=== PATIENT | female | born 1980 | race African-American/Black ===

== ENCOUNTER 2016-04-07 17:36 | Emergency (ER) | payer MEDICAID, OTHER ==
[~2016-04-07] VITALS: Ht 160 cm; Wt 99.8 kg
[~2016-04-07 17:36] MED LIST: AMITRIPTYLINE H10 MG ORAL; KEPPRA1000 MG ORAL; KEPPRA500 MG ORAL; NITROFURANTOIN100 M2 ORAL
[2016-04-07 17:49] VITALS: BP 107/73
[2016-04-07] MEDS ORDERED: TOPIRAMATE25 MG ORAL ×2 (17:51→18:10)
[2016-04-07] MEDS ORDERED: AMITRIPTYLINE25 MG ORAL (17:51)
[2016-04-07] MEDS ORDERED: DuoNeb 0.5-3(2.5)mg/3ml neb HHN ONE (18:00)
[2016-04-07] MEDS ORDERED: KEPPRA1000 MG ORAL (18:10)
[2016-04-07] MEDS ORDERED: AMITRIPTYLINE H10 MG ORAL (18:30)
[2016-04-07 18:52] VITALS: BP 114/72
--- NOTE | 2016-04-07 19:01 | Emergency Room Report ---
History of Present Illness General Chief Complaint: Medication Refill Source: Patient Present Illness HPI Patient is a 35-year-old female presented after increased left-sided chest tightness as well as cough. The patient is a smoker. She denies any fever. She reports being out of her medications for seizures. She denies any leg pain or swelling. Patient had a nonproductive cough intermittently. She denied any exertional symptoms. Patient denied any numbness or weakness to her extremities. She denies drug use. She had not been losing any weight she denies being Allergies: Coded Allergies: No Known Allergies (Unverified , 04/08/14) Patient History Past Medical History: see triage record, seizures Last Menstrual Period: 03/19/2016 Now: No : 9 Para: 6 Reviewed Nursing Documentation: PMH: Agreed, PSxH: Agreed Nursing Documentation-PMH Hx Neurological Problems: Yes - Chiari malformation, cyst behind eye Hx Seizures: Yes Review of Systems All Other Systems: negative except mentioned in HPI Physical Exam Vital Signs Date Time Temp Pulse Resp B/P Pulse Ox O2 Delivery O2 Flow Rate FiO2 04/07/16 17:41 98.4 81 16 107/73 100 Room Air General Appearance: well appearing, no apparent distress, alert, GCS 15 Head: normocephalic, atraumatic ENT: hearing grossly normal, normal voice Neck: full range of motion, supple Respiratory: chest non-tender, no respiratory distress, speaking full sentences , wheezing Gastrointestinal: normal inspection, normal bowel sounds, non tender, soft Musculoskeletal: normal inspection, back normal, digits/nails normal, no calf tenderness Neurologic: normal inspection, alert, oriented x3, responsive, state game protector III-XII nml as tested, normal gait Psychiatric: mood/affect normal Skin: no rash Medical Decision Making Diagnostic Impression: Primary Impression: Bronchitis ER Course Patient presented for chest pain. Differential diagnosis included but was not limited to bronchitis, pneumonia, pulmonary embolism, pericarditis, asthma, among others. EKG interpreted by me showed normal sinus rhythm with a rate of [address] or T wave changes. The patient was given refills of her Elavil as well as seizure medications. Which are Keppra 1000 mg bid and Topamax 50 mg bid. The patient is advised to follow up with primary care doctor in 1-2 days. Patient is advised to return if any worsening condition or if any changes in status that are concerning. Chest X-Ray Diagnostic Results EP Interpretation: Yes Findings: no consolidation, no effusion, no pneumothorax, no acute cardiopulmonary disease Number of Views: 1 Last Vital Signs Date Time Temp Pulse Resp B/P Pulse Ox O2 Delivery O2 Flow Rate FiO2 04/07/16 18:41 83 16 96 Nasal Cannula 04/07/16 17:41 98.4 107/73 Status: improved Disposition: HOME, SELF-CARE Condition: Stable Scripts Amitriptyline Hcl* (AMITRIPTYLINE HCL*) 10 Mg Tablet 30 MG ORAL BEDTIME, #120 TAB Prov: Flavio Mcknight 04/07/16 Topiramate* (TOPAMAX*) 25 Mg Tablet 50 MG ORAL TWICE A DAY, #60 TAB 0 Refills Prov: Flavio Mcknight 04/07/16 Levetiracetam (KEPPRA) 1,000 Mg Tablet 1000 MG ORAL BID, #60 TAB 0 Refills Prov: Flavio Mcknight 04/07/16 Patient Instructions: Medicine Refill at the Emergency Department, Acute Bronchitis Flavio Mcknight Apr 07, 2016 19:01
[2016-04-07 19:06] VITALS: BP 107/73
--- NOTE | 2016-04-08 10:20 | Diagnostic Imaging Report ---
Indication: SOB Technique: One view of the chest Comparison: none Findings: Lungs and pleural spaces are clear. Heart size is normal Impression: No acute process
--- NOTE | 2016-04-08 12:16 | Cardiology Report ---
APPROVED REPORT EKG Measurement Heart [id number] Normal sinus rhythm Normal ECG
== END 2016-04-07 19:06 | disposition home or self-care (01) ==
LOC: EMR 18:05
DX: J40 Bronchitis, not specified as acute or chronic (principal); Z86.69 Personal history of other diseases of the nervous system and sense organs
CPT/HCPCS: 71010; 93005; 94640; 94664; 99284; J7620

== ENCOUNTER 2016-05-04 08:54 | Emergency (ER) | payer MEDICAID, OTHER ==
[~2016-05-04] VITALS: Ht 160 cm; Wt 99.8 kg
[~2016-05-04 08:54] MED LIST changes: +AMITRIPTYLINE25 MG ORAL; +TOPIRAMATE25 MG ORAL
--- NOTE | 2016-05-04 09:14 | Emergency Room Report ---
History of Present Illness General Chief Complaint: Toothache Source: Patient, Medical Record Present Illness HPI Patient presents with complaints of ongoing left dental pain She reports that she has had an abscess for the past 7-10 days the pain has become worse Patient reports that there was some mixup with her [employer] and has not been able to see primary physician or dentist patient is also out of her baseline medications Pain is 8/10 localized to the left lower dental region radiates up towards left upper maxillary Denies any fevers or chills Allergies: Coded Allergies: No Known Allergies (Unverified , 04/08/14) Patient History Past Medical History: see triage record Pertinent Family History: none Last Menstrual Period: 04/03/2016 Now: No : 9 Para: 6 Reviewed Nursing Documentation: PMH: Agreed, PSxH: Agreed Nursing Documentation-PMH Hx Neurological Problems: Yes - Chiari malformation, cyst behind eye Hx Seizures: Yes Review of Systems All Other Systems: negative except mentioned in HPI Physical Exam Vital Signs Date Time Temp Pulse Resp B/P Pulse Ox O2 Delivery O2 Flow Rate FiO2 05/04/16 08:56 99.0 84 16 154/100 99 Room Air Sp02 EP Interpretation: reviewed, normal General Appearance: mild distress - Appears in pain Head: normocephalic, atraumatic Eyes: bilateral eye EOMI, bilateral eye PERRL ENT: other - Left back molar dental region, appears to have a ingrown type appearance some inflammatory changes in the gingival area, I cannot visualize any obvious abscess formation, no trismus, Neck: full range of motion, supple Respiratory: lungs clear Musculoskeletal: normal inspection Neurologic: alert, oriented x3, responsive Skin: normal color, no rash - No obvious facial abscess evident Lymphatic: no adenopathy Medical Decision Making Diagnostic Impression: Primary Impression: Dental abscess ER Course Given the examined findings there is no obvious clinical evidence of abscess however the patient does show evidence of increased discomfort And tooth decay with likely early abscess Patient was provided with antibiotics and pain medication And requires close outpatient followup Last Vital Signs Date Time Temp Pulse Resp B/P Pulse Ox O2 Delivery O2 Flow Rate FiO2 05/04/16 08:56 99.0 84 16 154/100 99 Room Air Status: improved Disposition: HOME, SELF-CARE Condition: Improved Scripts Levetiracetam (KEPPRA) 750 Mg Tablet 750 MG ORAL BID, #30 TAB Prov: KADEN JACKSON D.O. 05/04/16 Amoxicillin* (AMOXIL*) 500 Mg Capsule 500 MG ORAL THREE TIMES A DAY, #30 CAP Prov: KADEN JACKSON D.O. 05/04/16 Acetaminophen With Codeine (T#3) (TYLENOL #3 TAB*) Y Tab 1 TAB ORAL Q8H Y for For Pain, #12 TAB Prov: KADEN JACKSON D.O. 05/04/16 Ibuprofen* (MOTRIN*) 600 Mg Tablet 600 MG ORAL Q8H Y for For Pain, #30 TAB 0 Refills Prov: KADEN JACKSON D.O. 05/04/16 Topiramate* (TOPAMAX*) 25 Mg Tablet 25 MG ORAL TWICE A DAY, #60 TAB 0 Refills Prov: KADEN JACKSON D.O. 05/04/16 Amitriptyline HCl (ELAVIL*) 25 Mg Tablet 25 MG ORAL BEDTIME, #30 TAB Prov: KADEN JACKSON D.O. 05/04/16 Additional Instructions: Patient is provided with the discharge instructions notified to follow up with primary doctor in the next 2-3 days otherwise return to the er with any worsening symptoms. Please note that this report is being documented using [employer] technology. This can lead to erroneous entry secondary to incorrect interpretation by the dictating instrument. KADEN JACKSON D.O. May 04, 2016 09:14
[2016-05-04] MEDS ORDERED: Tylenol #3 tab (300mg/30mg) ORAL ONE (09:15)
[2016-05-04] MEDS ORDERED: Ketorolac 60mg Inj IM ONE (09:15)
[2016-05-04] MEDS ORDERED: IBUPROFEN600 MG ORAL (09:16)
[2016-05-04] MEDS ORDERED: TOPIRAMATE25 MG ORAL (09:16)
[2016-05-04] MEDS ORDERED: AMITRIPTYLINE25 MG ORAL (09:16)
[2016-05-04] MEDS ORDERED: ACETAMINOPHEN-1 EAC1 ORAL (09:16)
[2016-05-04] MEDS ORDERED: AMOXICILLIN500 MG ORAL (09:16)
[2016-05-04] MEDS ORDERED: KEPPRA750 MG ORAL (09:18)
[2016-05-04 09:36] VITALS: BP 153/100
== END 2016-05-04 09:40 | disposition home or self-care (01) ==
LOC: EMR 09:23
DX: K04.7 Periapical abscess without sinus (principal)
CPT/HCPCS: 96372; 99284

== ENCOUNTER 2017-03-30 10:02 | Emergency (ER) | payer MEDICAID, OTHER ==
[~2017-03-30] VITALS: Ht 162.6 cm; Wt 81.6 kg
[~2017-03-30 10:02] MED LIST changes: +ACETAMINOPHEN-1 EAC1 ORAL; +AMOXICILLIN500 MG ORAL; +IBUPROFEN600 MG ORAL; +KEPPRA750 MG ORAL
[2017-03-30 10:13] VITALS: BP 108/75
--- NOTE | 2017-03-30 10:38 | Emergency Room Report ---
History of Present Illness General Chief Complaint: Pain Source: Patient, Medical Record Present Illness HPI 36-year-old female presents ED complaining of left wrist pain x3 days. Pain as throbbing, 8/10, radiating up the arm. Worse with bending and twisting. Patient denies any trauma to the wrist. States it feels swollen compared to right wrist. Denies any other injuries. No other aggravating or relieving factors. Denies any other associated symptoms Allergies: Coded Allergies: No Known Allergies (Unverified , 04/08/14) Patient History Past Medical History: seizures Past Surgical History: none Pertinent Family History: none Social History: Denies: smoking, alcohol use, drug use Last Menstrual Period: 03/21/17 Now: No Immunizations: UTD Reviewed Nursing Documentation: PMH: Agreed, PSxH: Agreed Nursing Documentation-PMH Past Medical History: No History, Except For Hx Neurological Problems: Yes - Chiari malformation, cyst behind eye Hx Seizures: Yes Review of Systems All Other Systems: negative except mentioned in HPI Physical Exam Vital Signs Date Time Temp Pulse Resp B/P (MAP) Pulse Ox O2 Delivery O2 Flow Rate FiO2 03/30/17 10:05 97.9 89 18 103/73 98 Room Air Sp02 EP Interpretation: reviewed, normal General Appearance: no apparent distress, alert, GCS 15, non-toxic Head: normocephalic Eyes: bilateral eye normal inspection, bilateral eye PERRL ENT: normal ENT inspection Neck: normal inspection Respiratory: normal inspection Cardiovascular #1: normal inspection Gastrointestinal: normal inspection Rectal: deferred Genitourinary: no CVA tenderness Musculoskeletal: tender - L wrist Neurologic: alert, oriented x3, responsive, motor strength/tone normal, sensory intact, speech normal Psychiatric: normal inspection Skin: normal inspection Lymphatic: normal inspection Procedures Splinting Splinting : Consent: Verbal Pre-Made Type: velcro Splint: wrist Pre-Proc Neuro Vasc Exam: normal Post-Proc Neuro Vasc Exam: normal Patient Tolerated: Well Complications: None Medical Decision Making Diagnostic Impression: Primary Impression: Wrist pain Qualified Codes: M25.532 - Pain in left wrist ER Course Hospital Course 36-year-old female presents ED complaining of left wrist pain/swelling Differential diagnoses include: Fracture, dislocation, sprain, contusion Clinical course Patient placed on stretcher. After initial history and physical, I ordered pain medications and Xrays of L wrist Xrays read shows no acute fracture/dislocation. degenerative changes noted in lunate/triequetral joint. placed in wrist splint Diagnosis - wrist pain Stable and discharged to home with prescription for Motrin. apply ice, keep elevated. weight bear as tolerated. Followup with PMD. Return to ED if symptoms recur or worsen Other X-Ray Diagnostic Results Other X-Ray Diagnostic Results : X-Ray ordered: L wrist # of Views/Limited Vs Complete: 3 View Indication: Pain EP Interpretation: Yes Interpretation: no dislocation, no soft tissue swelling, no fractures Impression: No acute disease Electronically Signed by: Electronically signed by Wong Carvalho MD Last Vital Signs Date Time Temp Pulse Resp B/P (MAP) Pulse Ox O2 Delivery O2 Flow Rate FiO2 03/30/17 10:13 97.9 84 16 108/75 99 Room Air Status: improved Disposition: HOME, SELF-CARE Condition: Stable Scripts Ibuprofen* (MOTRIN*) 600 Mg Tablet 600 MG ORAL Q8H Y for For Pain, #30 TAB 0 Refills Prov: WONG CARVALHO M.D. 03/30/17 Referrals: EMPLOYEE COLIN AUGUSTE (PCP) WONG CARVALHO M.D. Mar 30, 2017 10:37
--- NOTE | 2017-03-30 11:00 | Diagnostic Imaging Report ---
Indication: Reason For Exam: PAIN Technique: XRAY Wrist Complete L Comparison: None. Findings: There is narrowing of the lunate triquetral joint. Cystic changes are noted on both sides of the joint in both the lunate and triquetrum. Remainder the bones are intact. Alignment is normal. 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
[2017-03-30] MEDS ORDERED: IBUPROFEN600 MG ORAL (11:08)
[2017-03-30 11:19] VITALS: BP 104/65
== END 2017-03-30 11:16 | disposition home or self-care (01) ==
LOC: EMR 10:16
DX: M25.532 Pain in left wrist (principal); M85.68 Other cyst of bone, other site
CPT/HCPCS: 99283

== ENCOUNTER 2017-12-31 18:35 | Emergency (ER) | payer MEDICAID, OTHER ==
[~2017-12-31] VITALS: Ht 160 cm; Wt 104.3 kg
[2017-12-31 18:48] VITALS: BP 106/77
[2017-12-31 19:32] LABS: APPEARANCE,URINE CLEAR; BILIRUBIN, URINE NEGATIVE (NEGATIVE); COLOR,URINE PALE YELLOW; GLUCOSE, URINE (UA) NEGATIVE (NEGATIVE); KETONES,URINE 1+ (NEGATIVE); LEUKOCYTE ESTERASE ,URINE NEGATIVE (NEGATIVE); NITRITE,URINE NEGATIVE (NEGATIVE); PH,URINE 5 (4.5-8.0); PROTEIN,URINE NEGATIVE (NEGATIVE); UROBILINOGEN,URINE NORMAL MG/DL (0.0-1.0)
--- NOTE | 2017-12-31 19:45 | Emergency Room Report ---
History of Present Illness General Chief Complaint: Abdominal Pain Source: Patient, Medical Record Present Illness HPI This patient c/o sharp RLQ pain after bm/urine. About 15-20 minutes and now subsided. She has had history of same on/off for about 2-3 years. PMD is trying to get vaginal pelvic US. No vag bleed or d/c. +dysparenuria. LMP two weeks ago. No dysuria, no diarrhea, no fever. Allergies: Coded Allergies: No Known Allergies (Unverified , 04/08/14) Patient History Last Menstrual Period: 12/18/17 Nursing Documentation-[facility] Past Medical History: No History, Except For Hx Neurological Problems: Yes - Chiari malformation, cyst behind eye Hx Seizures: Yes Review of Systems Constitutional: Reports: no symptoms Eye: Reports: no symptoms ENT: Reports: no symptoms Respiratory: Reports: no symptoms Cardiovascular: Reports: no symptoms Gastrointestinal: Reports: no symptoms Genitourinary: Reports: see HPI Musculoskeletal: Reports: no symptoms Skin: Reports: no symptoms Psychiatric: Reports: no symptoms Neurological: Reports: no symptoms Endocrine: Reports: no symptoms Hematologic/Lymphatic: Reports: no symptoms Allergic: Reports: no symptoms All Other Systems: negative except mentioned in HPI Physical Exam Vital Signs Date Time Temp Pulse Resp B/P (MAP) Pulse Ox O2 Delivery O2 Flow Rate FiO2 12/31/17 18:40 98.2 91 18 106/77 98 Room Air Sp02 EP Interpretation: reviewed, normal General Appearance: normal inspection, well appearing, no apparent distress, alert, GCS 15, non-toxic, obese Head: normocephalic, atraumatic Eyes: bilateral eye normal inspection, bilateral eye PERRL, bilateral eye EOMI ENT: normal ENT inspection, hearing grossly normal, normal pharynx, no angioedema, normal voice, moist mucus membranes Neck: normal inspection, full range of motion, supple, no meningismus, no bony tend Respiratory: normal inspection, lungs clear, normal breath sounds, no rhonchi, no respiratory distress, no retraction, no accessory muscle use, no wheezing Cardiovascular #1: normal inspection, regular rate, rhythm, no edema Gastrointestinal: normal inspection, normal bowel sounds, soft, no mass, non- distended, other - mild rlq tenderness, lower than McBurney's, more c/w ovarian Musculoskeletal: gait/station normal, normal range of motion Neurologic: normal inspection, alert, oriented x3, responsive, motor strength/ tone normal Psychiatric: normal inspection, judgement/insight normal, memory normal Suicide Risk Assessment: Suicidal Ideation: No Had intent to initiate attempt: No Pt's plan for suicide attempt: No Has means to complete attempt: No Skin: normal inspection, normal color, no rash, warm/dry Medical Decision Making Diagnostic Impression: Primary Impression: Pelvic pain ER Course tech saw cysts on cervix. official report available tomorrow. i advised patient to return friday to get copy of US from medical records and to take to pmd. this fits her symptoms Last Vital Signs Date Time Temp Pulse Resp B/P (MAP) Pulse Ox O2 Delivery O2 Flow Rate FiO2 12/31/17 18:48 98.2 91 18 106/77 98 Room Air Disposition: HOME, SELF-CARE Condition: Stable Patient Instructions: Pelvic Pain, Female, [id number] Joe Flood M.D. Dec 31, 2017 19:45
[2017-12-31] MEDS ORDERED: Ketorolac 30mg Inj IM ONE (20:00)
[2017-12-31 21:26] VITALS: BP 116/95
--- NOTE | 2018-01-01 12:13 | Diagnostic Imaging Report ---
Indication:Lower abdominal and pelvic pain Technique: Grayscale and duplex Doppler imaging of the pelvis performed utilizing a transabdominal and endovaginal scan. Comparison: None Findings: The size, contour, and configuration of the uterus is within normal limits. The endometrium is uniformly echogenic and normal in thickness. Endometrium measures about 11 mm. Uterus measures 10 x 7 x 6 cm. The ovaries appear normal bilaterally with good dopplerable blood flow. There are multiple cervical nabothian cysts are noted. There is no significant free fluid identified. Right ovary is 4 x 3.5 x 1.6 cm. Left ovary 2.8 x 2.5 x 2.2 cm. IMPRESSION: No acute findings.
== END 2017-12-31 21:31 | disposition home or self-care (01) ==
LOC: EMR 19:46
DX: R10.2 Pelvic and perineal pain (principal); R10.31 Right lower quadrant pain
CPT/HCPCS: 76830; 76856; 81001; 81025; 96372; 99284; J1885

== ENCOUNTER 2019-03-05 14:02 | Emergency (ER) | payer MEDICAID, OTHER ==
[~2019-03-05] VITALS: Ht 160 cm; Wt 99.8 kg
[2019-03-05 14:15] VITALS: BP 95/71
--- NOTE | 2019-03-05 15:06 | Emergency Room Report ---
History of Present Illness General Chief Complaint: Pain Source: Patient Present Illness HPI 38-year-old female presents to the emergency department complaining of 7 out of 10 severity pain and swelling in the left wrist x2 days. Patient reports she has a history of carpal tunnel syndrome and when she was pushing herself up off the bed she exacerbated her symptoms. Patient reports she has not been taking any anti-inflammatory medications. Patient states that she was never given night splints to wear. Patient reports acute electrical sensation down the left fourth and fifth digits. Patient states pain is exacerbated upon full flexion of her wrist. Patient states she is right-hand dominant. Patient denies bruising, suspicion of fractures, loss of gross motor movements or sustained paresthesias. Patient denies skin color changes. No other aggravating or relieving factors at this time. Allergies: Coded Allergies: No Known Allergies (Unverified , 04/08/14) Patient History Past Medical History: see triage record Past Surgical History: none Pertinent Family History: none Last Menstrual Period: 02/11/19 Now: No Reviewed Nursing Documentation: PMH: Agreed; PSxH: Agreed Nursing Documentation-PMH Past Medical History: No History, Except For Hx Neurological Problems: Yes - Chiari malformation, cyst behind eye Hx Seizures: Yes Review of Systems All Other Systems: negative except mentioned in HPI Physical Exam Vital Signs Date Time Temp Pulse Resp B/P (MAP) Pulse Ox O2 Delivery O2 Flow Rate FiO2 03/05/19 14:11 97.3 80 14 95/71 (79) 96 Room Air Sp02 EP Interpretation: reviewed, normal General Appearance: no apparent distress, alert, GCS 15, non-toxic Head: normocephalic, atraumatic Eyes: bilateral eye normal inspection, bilateral eye PERRL ENT: hearing grossly normal, normal voice Neck: full range of motion Respiratory: lungs clear, normal breath sounds, speaking full sentences Cardiovascular #1: regular rate, rhythm, normal capillary refill Cardiovascular #2: 2+ radial (R), 2+ radial (L) Musculoskeletal: normal range of motion, gait/station normal, tender - Dorsal aspect of the left wrist with some swelling extending into the left forearm, no obvious bony deformity, full range of motion of the wrist, no bruising. pain exacerbated with phalen test position. Neurologic: alert, motor strength/tone normal, oriented x3, sensory intact, responsive, speech normal, grossly normal Psychiatric: judgement/insight normal Skin: normal color, normal inspection Medical Decision Making PA Attestation Dr. Esquivel Is my supervising Physician whom patient management has been discussed with. Diagnostic Impression: Primary Impression: Left wrist sprain Qualified Codes: S63.502A - Unspecified sprain of left wrist, initial encounter Additional Impression: Carpal tunnel syndrome of left wrist ER Course 38-year-old female presents to the emergency department complaining of 7 out of 10 severity pain and swelling in the left wrist x2 days. Patient reports she has a history of carpal tunnel syndrome and when she was pushing herself up off the bed she exacerbated her symptoms. Patient reports she has not been taking any anti-inflammatory medications. Patient states that she was never given night splints to wear. Patient reports acute electrical sensation down the left fourth and fifth digits. Patient states pain is exacerbated upon full flexion of her wrist. Patient states she is right-hand dominant. Patient denies bruising, suspicion of fractures, loss of gross motor movements or sustained paresthesias. Patient denies skin color changes. No other aggravating or relieving factors at this time. Ddx considered but are not limited to Fracture, dislocation, contusion, Sprain/ Strain/Spasm, carpal tunnel syndrome, paresthesia Vital signs: are WNL, pt. is afebrile H&PE are most consistent with left wrist sprain in addition to exacerbation of carpal tunnel syndrome. ORDERS: - X-ray-not warranted at this time as there is no suspicion for fractures based on HPI and physical exam this is a collaborative decision between the patient and the provider. ED INTERVENTIONS: -Motrin 600 mg p.o. Left wrist splint applied by chemical treatment plant technician. Pt. remains neurovascularly intact. DISCHARGE: At this time pt. is stable for d/c to home. Will provide printed patient care instructions, and any necessary prescriptions. Care plan and follow up instructions have been discussed with the patient prior to discharge. Last Vital Signs Date Time Temp Pulse Resp B/P (MAP) Pulse Ox O2 Delivery O2 Flow Rate FiO2 03/05/19 14:15 97.3 82 14 95/71 96 Room Air Disposition: HOME, SELF-CARE Condition: Stable Patient Instructions: Carpal Tunnel Syndrome, [id number], Wrist Sprain Additional Instructions: Take medications as directed. Follow up with a Primary Care Provider in 3-5 days, even if your symptoms have resolved. Return sooner to ED if new symptoms occur, or current symptoms become worse. - Please note that this Emergency Department Report was dictated using [employer] technology software, occasionally this can lead to erroneous entry secondary to interpretation by the dictation equipment. Aria Sanchez Mar 05, 2019 15:06
[2019-03-05] MEDS ORDERED: IBUPROFEN600 MG ORAL (15:13)
[2019-03-05 15:20] VITALS: BP 148/86
== END 2019-03-05 15:20 | disposition home or self-care (01) ==
LOC: EMR 15:08
DX: S63.502A Unspecified sprain of left wrist, initial encounter (principal); G56.02 Carpal tunnel syndrome, left upper limb; G40.909 Epilepsy, unspecified, not intractable, without status epilepticus; Y93.89 Activity, other specified
CPT/HCPCS: 29125; Z7502; 99282